=== PATIENT | male | born 1950 | race Caucasian/White ===

== ENCOUNTER 2019-03-03 21:46 | Emergency (ER) | payer MEDICARE, OTHER, SELFPAY ==
[2019-03-03 21:54] VITALS: BP 172/106; PULSE 97; RESP 22; TEMP 36.8; O2SAT 96; BMI 23.7
[2019-03-03] MEDS: HYDROMORPHONE 1 MG INJ IM (22:05)
[2019-03-03] MEDS: LIDOCAINE 2% (UROJET) 5 ML GEL TOP (22:05)
--- NOTE | 2019-03-03 22:29 | PC.NURSE ---
rodger yelled out in pain when placing catheter. Reports relief now that catheter placed. 1400ml output upon insertion.
[2019-03-03 22:33] LABS: WBC Urine None Seen (0-5/HPF)
--- NOTE | 2019-03-03 22:38 | ED_ITS ---
HPI - Male Genitourinary General Chief complaint: Urogenital-Male Stated complaint: UNABLE TO URINATE Time Seen by Provider: 03/03/19 22:01 Source: patient Mode of arrival: Ambulatory Limitations: no limitations History of Present Illness HPI Narrative: The patient takes Flomax for BPH. About 1 week ago he developed decreased urine output. He describes urine output is trickling until today, today he lost ability urinate prior to arrival. He was seen at his local clinic about 5 days ago, and put on Macrobid for a UTI. A urine culture was done. Results are known. He revisit the clinic due to a lack of change in symptoms. Antibiotics was changed to Septra DS. He was diagnosed with a bladder infection. He arrives with urinary tension, and also chills. He is shaking bone arrival, this is being on for couple days. Denies associated fever. He has no testicular pain. He denies abdominal discomfort, nausea, vomiting or diarrhea. He has no URI symptoms, cough or chest discomfort. He has no history of bladder infection or prostatitis. He has no prior history of urinary retention. Related Data Previous Rx's Medication Instructions Recorded simvastatin 40 mg PO Q EVENING #90 tab 08/31/16 tamsulosin [Flomax] 0.4 mg PO Q EVENING #90 cap 08/31/16 ciprofloxacin HCl 500 mg PO BID #42 tab 03/04/19 Allergies Allergy/AdvReac Type Severity Reaction Status Date / Time No Known Drug Allergies Allergy Verified 03/03/19 22:51 Review of Systems Review of Systems ROS Unobtainable: All systems reviewed & are unremarkable except as noted in HPI and below Constitutional Constitutional: Reports chills, Denies fever(s) and Denies headache(s) ENT Ears, Nose, Mouth, and Throat: Denies headache(s) Comments: No complaints Cardiovascular Cardiovascular: Denies chest pain and Denies dyspnea Respiratory Respiratory: Denies cough and Denies dyspnea Gastrointestinal Gastrointestinal: Denies constipation and Denies vomiting Comments: Lower abdominal pressure. Genitourinary Genitourinary: Reports as per HPI, Denies hematuria, Reports difficulty urinating and Denies genital pain Musculoskeletal Musculoskeletal: Denies back pain Integumentary/Breasts Skin/Breast: Denies erythema and Denies rash Neurologic Neurologic: Denies confusion and Denies headache(s) Psychiatric Psychiatric: Denies confusion Patient History Medical History (Updated 03/04/19 @ 01:14 by Zac Vargas MD) BPH (benign prostatic hyperplasia) (Acute) Hyperlipidemia (Acute) Surgical History (Updated 03/04/19 @ 01:08 by Zac Vargas MD) No significant past surgical history (Acute) Social History Smoking Status: Current every day smoker Smoking Status: Current every day smoker tobacco type: cigarettes alcohol intake frequency: 0-2 drinks per day Substance Use Type: marijuana Exam Initial Vital Signs Initial Vital Signs: Vital Signs Temperature 98.3 F 03/03/19 21:54 Pulse Rate 97 H 03/03/19 21:54 Respiratory Rate 22 03/03/19 21:54 Blood Pressure 172/106 H 03/03/19 21:54 Pulse Oximetry 96 03/03/19 21:54 Const General: cooperative and well developed Nutritional Appearance: well nourished Resp Effort & Inspection: normal respiratory effort and able to speak in complete sen tences Auscultation: clear to auscultation bilaterally, no rales, no rhonchi and no wheezes Cardio Rate: regular rate Rhythm: regular rhythm Heart Sounds: S1 normal, no click, no gallops, no murmurs and no rubs Pulses: normal peripheral pulses GI Inspection: non-distended Palpation: soft, no hepatosplenomegaly, No guarding, No pulsatile mass and No tender Auscultation: normal bowel sounds Scrotum: not erythematous and no scrotal swelling Testes: normal Back/Spine/Pelvis Back: No CVA tenderness Skin General: no rashes or lesions noted Neuro General: alert, oriented x3, gait normal and no focal motor deficits Speech: speech normal Course Course Course Narrative: A Hassan was placed by the patient's nurse, there were 1400+ mL of urine out. The patient apparently had suprapubic discomfort prior to arrival, on my exam he has mild discomfort only with no obvious masses/retention. The patient has shakes,chills recently. I started him with IV Levaquin for prostatitis. Labs are reassuring. He was diagnosed with UTI, not effectively treated with Macrobid or Septra DS. With the history of BPH, and now with retention, I'm diagnosing him is prostatitis. I gave him a dose of IV Levaquin due to the concerns of shaking chills. The patient is feeling much better after receiving the IV antibiotics, IV fluids and Tylenol. He'll be discharged on oral antibiotics, with advice to follow-up with his urologist. A leg bag will be placed prior to discharge. Orders Ordered: ED Orders 03/03/19 22:20 Urinalysis and Microscopic Stat Urine Culture Stat 03/03/19 23:00 Basic Metabolic Panel Stat Complete Blood Count AUTO DIFF Stat Lactate (Lactic Acid) Stat Sodium Chloride (Normal Saline 0.9%) 1,000 mls @ 250 mls/hr IV CONT DONIS Last Admin: 03/03/19 23:07 Dose: 250 mls/hr Documented by: SUZI Discontinued Medications Acetaminophen (Tylenol) 975 mg PO NOW ONE Stop: 03/03/19 22:49 Last Admin: 03/03/19 23:07 Dose: 975 mg Documented by: SUZI Hydromorphone HCl (Dilaudid) 1 mg IM NOW ONE Stop: 03/03/19 22:03 Last Admin: 03/03/19 22:05 Dose: 1 mg Documented by: SUZI Levofloxacin (Levaquin) 500 mg in 100 mls @ 100 mls/hr IV NOW ONE Stop: 03/03/19 23:47 Last Infusion: 03/04/19 01:01 Dose: 0 mls/hr Documented by: Admin: 03/03/19 23:07 Dose: 100 mls/hr Documented by: SUZI Lidocaine HCl (Urojet) 5 ml TOP NOW ONE Stop: 03/03/19 21:57 Last Admin: 03/03/19 22:05 Dose: 5 ml Documented by: SUZI Vital Signs Vital signs: Vital Signs - 8 hr 03/03/19 21:54 03/03/19 23:32 03/04/19 01:03 Temperature 98.3 F 98.7 F Pulse Rate 97 H 85 Respiratory Rate 22 15 Blood Pressure 172/106 H Blood Pressure [Left Arm] 141/77 H Pulse Oximetry 96 94 MDM - Male Genitourinary Lab Data Result diagrams: 03/03/19 23:00 03/03/19 23:00 Labs: Lab Results 03/03/19 03/03/19 03/03/19 Range/Units 22:20 23:00 23:00 WBC 9.5 (4.5-11.0) X10^3/uL RBC 4.50 (4.5-5.9) X10^6/uL Hgb 13.8 (13.5-17.5) g/dL Hct 40.8 L (41-53) % MCV 90.8 (80-100) fL MCH 30.7 (26-34) PG MCHC 33.8 (30-36) % RDW 14.9 H (11.6-14.8) % Plt Count 262 (150-400) X10^3/uL Neut % (Auto) 73.3 (50-75) % Lymph % (Auto) 11.4 L (25-40) % [place] % (Auto) 14.8 H (3-14) % Eos % (Auto) 0.3 L (2-4) % Baso % (Auto) 0.2 (0-2) % Neut # (Auto) 6900 (2276-8965) /uL Lymph # (Auto) 1100 (5543-8100) /uL [place] # (Auto) 1400 H (0-900) /uL Eos # (Auto) 0 (0-450) /uL Baso # (Auto) 0 (0-100) /uL Sodium 137 (137-145) mmol/L Potassium 3.6 (3.4-5.1) mmol/L Chloride 101 (98-107) mmol/L Carbon Dioxide 26 (22-32) mmol/L BUN 18 (9-20) mg/dL Creatinine 1.00 (0.66-1.25) mg/dL Estimated GFR > 60.0 (>60) mL/min BUN/Creatinine Ratio 18.0 (6-22) Glucose 106 (80-110) mg/dL Lactate (0.7-2.1) mmol/L Calcium 9.6 (8.4-10.2) mg/dL Urine Color [place] Urine Appearance Clear Urine pH 5.0 (4.5-8.0) Ur Specific [place] 1.020 (1.000-1.035) Urine Protein TNP Urine Glucose (UA) TNP Urine Ketones TNP Urine Occult Blood TNP Urine Nitrate TNP Urine Bilirubin TNP Urine Urobilinogen TNP Ur Leukocyte Esterase TNP Urine RBC 1-5/hpf (0-5/HPF) Urine WBC None seen (0-5/HPF) Ur Squamous Epith Cells 0-1 /hpf (0-5/HPF) Urine Bacteria Occasional (0-1) (None) Ur Culture Indicated? Cult not indicated 03/03/19 Range/Units 23:00 WBC (4.5-11.0) X10^3/uL RBC (4.5-5.9) X10^6/uL Hgb (13.5-17.5) g/dL Hct (41-53) % MCV (80-100) fL MCH (26-34) PG MCHC (30-36) % RDW (11.6-14.8) % Plt Count (150-400) X10^3/uL Neut % (Auto) (50-75) % Lymph % (Auto) (25-40) % [place] % (Auto) (3-14) % Eos % (Auto) (2-4) % Baso % (Auto) (0-2) % Neut # (Auto) (3180-0874) /uL Lymph # (Auto) (3527-8992) /uL [place] # (Auto) (0-900) /uL Eos # (Auto) (0-450) /uL Baso # (Auto) (0-100) /uL Sodium (137-145) mmol/L Potassium (3.4-5.1) mmol/L Chloride (98-107) mmol/L Carbon Dioxide (22-32) mmol/L BUN (9-20) mg/dL Creatinine (0.66-1.25) mg/dL Estimated GFR (>60) mL/min BUN/Creatinine Ratio (6-22) Glucose (80-110) mg/dL Lactate 1.1 (0.7-2.1) mmol/L Calcium (8.4-10.2) mg/dL Urine Color Urine Appearance Urine pH (4.5-8.0) Ur Specific [place] (1.000-1.035) Urine Protein Urine Glucose (UA) Urine Ketones Urine Occult Blood Urine Nitrate Urine Bilirubin Urine Urobilinogen Ur Leukocyte Esterase Urine RBC (0-5/HPF) Urine WBC (0-5/HPF) Ur Squamous Epith Cells (0-5/HPF) Urine Bacteria (None) Ur Culture Indicated? Discharge Plan Departure Patient Disposition: Home Clinical Impression: Acute prostatitis, Acute urinary retention BPH (benign prostatic hyperplasia) Qualifiers: Lower urinary tract symptom presence: symptoms present Lower urinary tract symptom detail: urinary retention Qualified Code(s): N40.1 - Benign prostatic hyperplasia with lower urinary tract symptoms Instructions: DI for Urinary Retention in Men, DI for Acute Prostatitis Activity Restrictions/Additional Instructions: Call your urologist today to arrange follow-up. The catheter should remain in place until Urology sees you. Cipro 2 times daily x3 weeks as prescribed. Drink plenty of water and stay well hydrated. Return to ER as needed. Prescriptions: New ciprofloxacin HCl 500 mg tablet 500 mg PO BID Qty: 42 RF: 0 No Action tamsulosin [Flomax] 0.4 MG capsule,extended release 24hr 0.4 mg PO Q EVENING Qty: 90 RF: 3 simvastatin 40 MG tablet 40 mg PO Q EVENING Qty: 90 RF: 3
[2019-03-03 22:41] LABS: Appearance Urine UA CLEAR
[2019-03-03 22:42] LABS: Color Urine UA Orange
[2019-03-03 22:43] LABS: RBC Urine 1-5/HPF (0-5/HPF); Squamous Epithelial Cell Urine 0-1 /HPF (0-5/HPF)
[2019-03-03 22:44] LABS: Bacteria Urine Occasional (0-1)
[2019-03-03 22:45] LABS: Culture Indicated Urine Cult Not Indicated
[2019-03-03] MEDS: levoFLOXacin 500 MG/100 ML PIGGYBACK 100 MG IV (23:07)
[2019-03-03] MEDS: SODIUM CHLORIDE 0.9% 1,000 ML 250 ML IV (23:07)
[2019-03-03] MEDS: ACETAMINOPHEN 325 MG TABLET 975 MG PO (23:07)
[2019-03-03 23:11] LABS: Add Manual Diff / Slide Review NO; Basophils Absolute Auto 0 /uL (0-100); Basophils Percent Auto 0.2 % (0-2); Eosinophils Absolute Auto 0 /uL (0-450); Eosinophils Percent Auto 0.3 % (2-4); Hematocrit 40.8 % (41-53); Hemoglobin 13.8 g/dL (13.5-17.5); Lymphocytes Absolute Auto 1100 /uL (1100-4500); Lymphocytes Percent Auto 11.4 % (25-40); Mean Corpuscular HGB Conc 33.8 % (30-36); Mean Corpuscular Hemoglobin 30.7 PG (26-34); Mean Corpuscular Volume 90.8 fL (80-100); Monocytes Absolute Auto 1400 /uL (0-900); Monocytes Percent Auto 14.8 % (3-14); Neutrophils Absolute Auto 6900 /uL (1500-7000); Neutrophils Percent Auto 73.3 % (50-75); Platelet Count 262 X10^3/uL (150-400); Red Cell Distribution Width 14.9 % (11.6-14.8); White Blood Cell Count 9.5 X10^3/uL (4.5-11.0)
[2019-03-03 23:20] LABS: Blood Urea Nitrogen 18 mg/dL (9-20); Calcium 9.6 mg/dL (8.4-10.2); Carbon Dioxide 26 mmol/L (22-32); Chloride 101 mmol/L (98-107); Estimated Glomerular Filt Rate > 60.0 mL/min (>60); Glucose 106 mg/dL (80-110); HEMOLYSIS < 15 (0-50); Lactate (Lactic Acid) 1.1 mmol/L (0.7-2.1); Potassium 3.6 mmol/L (3.4-5.1); Sodium 137 mmol/L (137-145)
[2019-03-03 23:32] VITALS: BP 141/77; PULSE 85; RESP 15; O2SAT 94
[2019-03-04 01:03] VITALS: TEMP 37.1
[2019-03-04 01:37] VITALS: BP 138/84; PULSE 86; RESP 16; O2SAT 99
--- NOTE | 2019-03-04 01:41 | PC.NURSE ---
cath bag switched to leg bag. Pt educated on cath care and restated in his own words my directions.
== END 2019-03-04 01:42 | disposition home or self-care (01) ==
PROVIDERS: Emergency Provider Emergency Medicine
DX: N41.0 Acute prostatitis (principal); R33.9 Retention of urine, unspecified; N40.1 Benign prostatic hyperplasia with lower urinary tract symptoms
CPT/HCPCS: 36415; 51701; 80048; 81001; 83605; 85025; 87086; 96365; 96366; 96372; 99284; 99285; J1170; J1956

== ENCOUNTER 2019-03-10 18:24 | Emergency (ER) | payer MEDICARE, OTHER, SELFPAY ==
[2019-03-10 18:35] VITALS: BP 167/99; PULSE 95; RESP 16; TEMP 37; O2SAT 98; BMI 23.7
[2019-03-10] MEDS: LIDOCAINE 2% (UROJET) 5 ML GEL TOP (18:45)
--- NOTE | 2019-03-10 18:46 | ED_ITS ---
HPI - Male Genitourinary <JOHNNIE Leroy - Last Filed: 03/10/19 20:36> General Chief complaint: Urogenital-Male Stated complaint: Can't Urinate Time Seen by Provider: 03/10/19 18:40 Source: patient Mode of arrival: Ambulatory History of Present Illness HPI Narrative: 69-year-old male with a history of BPH (currently taking Flomax), presents to the emergency department complaining of urinary retention that s tarted around 3:00 p.m. today. He was seen on 03/03/2019 and a Hassan catheter was placed. Patient follow-up with urologist, Dr. Nhung Gonzalez. Patient was told on Sunday to remove the catheter today. Patient removed his catheter this morning and was able to urinate without difficulty. However, around 3:00 p.m. he noticed decreased ability to urinate and increased bladder pressure. Patient states he is able to pass a very small amount of urine but still feels like his bladder is very full. He denies any blood in urine, chills, fevers, abdominal pain, nausea, vomiting, diarrhea, or other concerns. He states he does have and notice increase and hemorrhoidal pain before the urinary retention started. Related Data Previous Rx's Medication Instructions Recorded simvastatin 40 mg PO Q EVENING #90 tab 08/31/16 tamsulosin [Flomax] 0.4 mg PO Q EVENING #90 cap 08/31/16 ciprofloxacin HCl 500 mg PO BID #42 tab 03/04/19 Allergies Allergy/AdvReac Type Severity Reaction Status Date / Time No Known Drug Allergies Allergy Verified 03/03/19 22:51 Review of Systems <JOHNNIE Leroy - Last Filed: 03/10/19 20:36> Review of Systems Narrative: REVIEW OF SYSTEMS: GENERAL: Denies fever or chills. HENT: No head trauma, hearing loss or sore throat. EYES: No loss of vision, double vision, eye pain, or irritation. CARDIOVASCULAR: No chest pain or syncope. RESPIRATORY: No shortness of breath or cough. GASTROINTESTINAL: No nausea, vomiting, diarrhea, or constipation. GENITOURINARY: Complains of difficulty urinating, see HPI. MUSCULOSKELETAL: No pain, weakness, or deformities. INTEGUMENTARY: No rash, lesions, or pruritus. NEURO: No numbness, tingling, memory loss, or confusion. PSYCH: No behavior or mood changes. Patient History <JOHNNIE Leroy - Last Filed: 03/10/19 20:36> Medical History BPH (benign prostatic hyperplasia) (Acute) Hyperlipidemia (Acute) Surgical History No significant past surgical history (Acute) Social History Smoking Status: Current every day smoker Smoking Status: Current every day smoker tobacco type: cigarettes alcohol intake frequency: 0-2 drinks per day Substance Use Type: marijuana Exam <JOHNNIE Leroy - Last Filed: 03/10/19 20:36> Initial Vital Signs Initial Vital Signs: Vital Signs Temperature 98.6 F 03/10/19 18:35 Pulse Rate 95 H 03/10/19 18:35 Respiratory Rate 16 03/10/19 18:35 Blood Pressure 167/99 H 03/10/19 18:35 Pulse Oximetry 98 03/10/19 18:35 PHYSICAL EXAMINATION: GENERAL: Well groomed, alert, and cooperative. Answers questions promptly and appropriately. Vital signs noted. HENT: Normocephalic, atraumatic. Ear canals patent. Oral mucosa is pink and moist. EYES: Conjunctiva pink, sclera white, no periorbital swelling. CHEST: Normal to inspection and without deformities. CARDIOVASCULAR: S1 and S2 sounds normal. Regular rate and rhythm, no murmurs, clicks, or bruits. No pedal edema. RESPIRATORY: Normal respiratory rate, trachea midline, airway patent. No stridor, nasal flaring or accessory muscle use. Lungs are clear in all bah without wheeze, rhonchi, or crackles. GASTROINTESTINAL: Bowel sounds normoactive. Abdomen is soft and non-tender. No organomegaly. : Bladder distention palpable. MUSCULOSKELETAL: Normal gait and coordination. Equal tone and mass bilaterally. EXTREMITIES: CMS intact. Moves all extremities. SKIN: Warm, dry, soft, appropriate color for ethnicity. No lesions, rashes, or wounds. NEURO: Alert and Oriented X 3. Good coordination. No ataxia, or sensory deficits, or cognitive issues. PSYCH: Appropriate affect and mood. <Nathan Anna DO - Last Filed: 03/10/19 20:37> Initial Vital Signs Initial Vital Signs: Vital Signs Temperature 98.6 F 03/10/19 18:35 Pulse Rate 95 H 03/10/19 18:35 Respiratory Rate 16 03/10/19 18:35 Blood Pressure 167/99 H 03/10/19 18:35 Pulse Oximetry 98 03/10/19 18:35 Course <JOHNNIE Leroy - Last Filed: 03/10/19 20:36> Course Course Narrative: Hassan catheter was placed in the emergency department with greater than 500 mL of urine output. Leg bag was given and catheter teaching was given to patient per nursing. PSA was drawn per request of urologist per patient Orders Ordered: ED Orders 03/10/19 19:06 Urinalysis and Microscopic Stat 03/10/19 19:10 Prostate Specific Antigen Stat Discontinued Medications Lidocaine HCl (Urojet) 5 ml TOP NOW ONE Stop: 03/10/19 18:41 Last Admin: 03/10/19 18:45 Dose: 5 ml Documented by: JAROD Consultations Consultation #1: Patient staffed with Dr. Anna. Vital Signs Vital signs: Vital Signs - 8 hr 03/10/19 18:35 03/10/19 20:22 Temperature 98.6 F Pulse Rate 95 H 86 Respiratory Rate 16 16 Blood Pressure 167/99 H 158/86 H Pulse Oximetry 98 100 <Nathan Anna DO - Last Filed: 03/10/19 20:37> Orders Ordered: ED Orders 03/10/19 19:06 Urinalysis and Microscopic Stat 03/10/19 19:10 Prostate Specific Antigen Stat Discontinued Medications Lidocaine HCl (Urojet) 5 ml TOP NOW ONE Stop: 03/10/19 18:41 Last Admin: 03/10/19 18:45 Dose: 5 ml Documented by: JAROD Vital Signs Vital signs: Vital Signs - 8 hr 03/10/19 18:35 03/10/19 20:22 Temperature 98.6 F Pulse Rate 95 H 86 Respiratory Rate 16 16 Blood Pressure 167/99 H 158/86 H Pulse Oximetry 98 100 MDM - Male Genitourinary <JOHNNIE Leroy - Last Filed: 03/10/19 20:36> Medical Records Attestation: I reviewed the patient's medical records. Lab Data Attestation: I reviewed the patient's lab results. Labs: Lab Results 03/10/19 03/10/19 Range/Units 19:06 19:10 Prostate Specific Ag 16.2 H (0.10-4.00) ng/mL Urine Color Yellow Urine Appearance Clear Urine pH 5.5 (4.5-8.0) Ur Specific [place] 1.015 (1.000-1.035) Urine Protein Negative (Negative) Urine Glucose (UA) Negative (Negative) g/dL Urine Ketones Negative (NEGATIVE) Urine Occult Blood Trace-lysed (Negative) Urine Nitrate Negative (Negative) Urine Bilirubin Negative (NEGATIVE) Urine Urobilinogen 0.2 (0.2) E.U./dL Ur Leukocyte Esterase Negative (NEGATIVE) Urine RBC 1-5/hpf (0-5/HPF) Urine WBC None seen (0-5/HPF) Ur Squamous Epith Cells 0-1 /hpf (0-5/HPF) Urine Bacteria None seen (None) Ur Culture Indicated? Cult not indicated MDM Narrative Medical decision making narrative: 61-year-old male presents emergency department for urinary tension after taking out a catheter that was inserted on 03/03/2019 per direction of his urologist. A Hassan catheter was reinserted and greater than 500 mL of urine was drained. Differential includes BPH, prostate malignancy, and less likely acute prostatitis (due to lack of pain, lack of bacteria/WBC/nitrates in urine, lack of fevers,). Patient was encouraged to follow up with his urologist. PSA results were given to patient. Patient was instructed on how to use catheter. Patient agreed with plan of care verbalized understanding. <Nathan Anna, DO - Last Filed: 03/10/19 20:37> Lab Data Labs: Lab Results 03/10/19 03/10/19 Range/Units 19:06 19:10 Prostate Specific Ag 16.2 H (0.10-4.00) ng/mL Urine Color Yellow Urine Appearance Clear Urine pH 5.5 (4.5-8.0) Ur Specific [place] 1.015 (1.000-1.035) Urine Protein Negative (Negative) Urine Glucose (UA) Negative (Negative) g/dL Urine Ketones Negative (NEGATIVE) Urine Occult Blood Trace-lysed (Negative) Urine Nitrate Negative (Negative) Urine Bilirubin Negative (NEGATIVE) Urine Urobilinogen 0.2 (0.2) E.U./dL Ur Leukocyte Esterase Negative (NEGATIVE) Urine RBC 1-5/hpf (0-5/HPF) Urine WBC None seen (0-5/HPF) Ur Squamous Epith Cells 0-1 /hpf (0-5/HPF) Urine Bacteria None seen (None) Ur Culture Indicated? Cult not indicated Discharge Plan Departure Patient Disposition: Home Clinical Impression: Acute urinary retention BPH (benign prostatic hyperplasia) Qualifiers: Lower urinary tract symptom presence: symptoms present Lower urinary tract symptom detail: unspecified Qualified Code(s): N40.1 - Benign prostatic hyperplasia with lower urinary tract symptoms Discharge Date/Time: 03/10/19 20:23 Instructions: How to Care for Your Hassan Catheter -- Male, DI for Benign Prostatic Hyperplasia, DI for Urinary Retention in Men Activity Restrictions/Additional Instructions: Thank you for entrusting me with your care today. As discussed, a Hassan catheter was placed. Please call your urologist in the morning and schedule a follow-up appointment. Your PSA result is 16.2. Return emergency department for new or worsening symptoms such as high fevers, uncontrollable vomiting, chest pain, shortness of breath, or etc. Prescriptions: No Action tamsulosin [Flomax] 0.4 MG capsule,extended release 24hr 0.4 mg PO Q EVENING Qty: 90 RF: 3 simvastatin 40 MG tablet 40 mg PO Q EVENING Qty: 90 RF: 3 ciprofloxacin HCl 500 mg tablet 500 mg PO BID Qty: 42 RF: 0 Referrals: Tiago Hernandez MD [Non-Staff] - (Urinary retention)
--- NOTE | 2019-03-10 19:01 | PC.NURSE ---
16f coude placed. Patient tolerated well. Patient had removed cath this morning per urologist request. Currently being treated for infection of the prostate.
[2019-03-10 19:08] LABS: Appearance Urine UA CLEAR; Bacteria Urine None Seen; Bilirubin Urine UA NEGATIVE (NEGATIVE); Color Urine UA YELLOW; Glucose Urine UA NEGATIVE (Negative); Ketones Urine UA NEGATIVE (NEGATIVE); Leukocyte Esterase Urine UA NEGATIVE (NEGATIVE); Nitrite Urine UA NEGATIVE (Negative); Occult Blood Urine UA TRACE-LYSED (Negative); Protein Urine UA NEGATIVE (Negative); Specific Gravity Urine UA 1.015 (1.000-1.035); Urobilinogen Urine UA 0.2 E.U./dL (0.2); WBC Urine None Seen (0-5/HPF); pH Urine UA 5.5 (4.5-8.0)
[2019-03-10 19:17] LABS: Culture Indicated Urine Cult Not Indicated; RBC Urine 1-5/HPF (0-5/HPF); Squamous Epithelial Cell Urine 0-1 /HPF (0-5/HPF)
[2019-03-10 20:05] LABS: Prostate Specific Antigen 16.2 ng/mL (0.10-4.00)
[2019-03-10 20:22] VITALS: BP 158/86; PULSE 86; RESP 16; O2SAT 100
--- NOTE | 2019-03-10 20:23 | PC.NURSE ---
switched patient over to leg bag
== END 2019-03-10 20:23 | disposition home or self-care (01) ==
PROVIDERS: Emergency Provider Nurse Practitioner
DX: R33.9 Retention of urine, unspecified (principal); N40.1 Benign prostatic hyperplasia with lower urinary tract symptoms
CPT/HCPCS: 36415; 51798; 81001; 84153; 99284